=== PATIENT | male | born 2000 | race Caucasian/White ===

== ENCOUNTER 2020-10-04 15:01 | Emergency (ER) | payer OTHER ==
[~2020-10-04] VITALS: Ht 182.9 cm; Wt 65.5 kg
[2020-10-04 15:02] VITALS: BP 136/76
== END 2020-10-04 15:58 | disposition home or self-care (01) ==
LOC: M ED 15:01
DX: S61.512A Laceration without foreign body of left wrist, initial encounter (principal); W26.0XXA Contact with knife, initial encounter; G56.92 Unspecified mononeuropathy of left upper limb; Y92.9 Unspecified place or not applicable; Y93.9 Activity, unspecified; Y99.9 Unspecified external cause status

== ENCOUNTER 2020-10-12 13:37 | Emergency (ER) | payer OTHER ==
[~2020-10-12] VITALS: Ht 182.9 cm; Wt 65.9 kg
[2020-10-12] MEDS ORDERED: IBUPROFEN 800 MG TAB PO ONE (15:45)
[2020-10-12] MEDS ORDERED: ACETAMINOPHEN 500 MG TAB PO ONE (15:45)
[2020-10-12 16:01] VITALS: BP 136/80
== END 2020-10-12 16:00 | disposition home or self-care (01) ==
LOC: M ED 13:37
DX: G56.92 Unspecified mononeuropathy of left upper limb (principal)